=== PATIENT | male | born 1985 | race Two or more races ===

== ENCOUNTER 2019-01-18 21:48 | Emergency (ER) | payer SELFPAY ==
[~2019-01-18] VITALS: Ht 167.6 cm; Wt 81.6 kg
--- NOTE | 2019-01-18 22:15 | NUR ---
ED Nurse Note: Recvieved pt from home with c/o chest pain intermittently x 3-4 weeks, denies injury, sob, any history, or other complaints, pt gowned and assisted to monitoring, will resume care as ordered and continue to closely monitor.
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
[2019-01-18 22:49] LABS: ANION GAP 9 mmol/L (5-15); BLOOD UREA NITROGEN 18 mg/dL (7-18); CALCIUM 9.6 MG/DL (8.5-10.1); CARBON DIOXIDE 27 MMOL/L (21-32); CHLORIDE 103 MMOL/L (98-107); SODIUM 139 MMOL/L (136-145)
[2019-01-18 22:54] LABS: BASOPHILS % (AUTO) 0.9 % (0.0-2.0); EOSINOPHILS % (AUTO) 2.1 % (0.0-3.0); HEMATOCRIT 48.7 % (42.0-52.0); HEMOGLOBIN 16.9 G/DL (14.2-18.0); LYMPHOCYTES % (AUTO) 39.9 % (20.0-45.0); MEAN CORPUSCULAR VOLUME 88 FL (80-99); MONOCYTES % (AUTO) 6.9 % (1.0-10.0); NEUTROPHILS % (AUTO) 50.3 % (45.0-75.0); PLATELET COUNT 316 K/UL (150-450); RED BLOOD COUNT 5.54 M/UL (4.70-6.10); WHITE BLOOD COUNT 8.4 K/UL (4.8-10.8)
[2019-01-18 23:02] LABS: ALANINE AMINOTRANSFERASE 35 U/L (12-78); ALBUMIN 4.4 G/DL (3.4-5.0); ALBUMIN/GLOBULIN RATIO 1.2 (1.0-2.7); ALKALINE PHOSPHATASE 88 U/L (46-116); ASPARTATE AMINO TRANSFERASE 18 U/L (15-37); BILIRUBIN,TOTAL 0.9 MG/DL (0.2-1.0); CKMB 0.7 NG/ML (0.0-3.6); CREATINE KINASE 129 U/L (26-308)
[2019-01-18] MEDS ORDERED: ROBAXIN-750750 MG PO (23:57)
[2019-01-18] MEDS ORDERED: MECLIZINE HCL25 MG ORAL (23:57)
--- NOTE | 2019-01-18 23:58 | Emergency Room Report ---
History of Present Illness General Chief Complaint: Chest Pain Source: Patient Present Illness HPI Disclaimer: Please note that this report is being documented using DRAGON technology. This can lead to erroneous entry secondary to incorrect interpretation by the dictating instrument. HPI: This is a 33-year-old Samoan-speaking male presenting for evaluation of chest and back pain. History and exam were performed with the help of an fisher crab. Patient is otherwise healthy with no medical history and states he has been experiencing approximately 2-week of left-sided upper back pain over the scapula and occasionally over the left anterior chest wall. This pain is always exacerbated by moving into the left upper extremity particularly at the shoulder. He also notes intermittent episode of lightheadedness and somewhat vertiginous symptoms with head movements over the past 2 weeks that got worse today. Currently, he is asymptomatic and states his lightheadedness resolved just prior to arrival. He still complains of back pain but no chest pain. Cannot recall specific injury. 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 He denies numbness, tingling, weakness as well as ataxia, headache or vision changes. He is otherwise in his usual state of health and denies any recent fever, chills, cough, abdominal pain, vomiting, diarrhea PMH: Denies PSH: Denies Allergies: Denies Social Hx: Occasional alcohol use, occasional tobacco use. Denies IV drugs Allergies: Coded Allergies: No Known Allergies (Unverified , 01/18/19) Nursing Documentation-PMH Past Medical History: No Stated History Review of Systems All Other Systems: negative except mentioned in HPI Physical Exam Vital Signs Date Time Temp Pulse Resp B/P (MAP) Pulse Ox O2 Delivery O2 Flow Rate FiO2 01/18/19 21:54 98.4 83 14 160/102 (121) 97 Room Air General: Awake and alert, no acute distress HEENT: NC/AT. EOMI. PERRLA. No nystagmus. Neck: Supple, trachea midline Chest Wall: No tenderness, no deformity Cardiovascular: RRR. S1 and S2 normal. No murmur appreciated Resp: Normal work of breathing. No cough, wheezing or crackles appreciated Abdomen: Abdomen is soft, nondistended. Nontender Skin: Intact. No abrasions, laceration or rash over the exposed skin MSK: Normal tone and bulk. Moving all extremities. No obvious deformity. Neuro: Awake and alert. Mentating appropriately. There is no nystagmus, facial expressions are symmetrical. The patient has no dysmetria on finger-nose -finger, heel shell testing. Sensation is intact over the upper and lower extremities of the dermatomes bilaterally. Back/Spine: No midline tenderness in the cervical, thoracic or lumbosacral spine. There is left-sided paraspinal tenderness and tenderness in the mid scapular line in the upper thoracic spine and tenderness over the trapezius. No obvious trigger point Medical Decision Making Diagnostic Impression: Primary Impression: Back spasm Additional Impressions: Lightheaded Vertigo, peripheral ER Course 33-year-old male presents for evaluation of 2 weeks worsening left-sided back pain, intermittent chest wall pain and lightheadedness/vertigo. Differential includes but is not limited to ACS, unstable angina, bronchitis, GERD, peripheral vertigo, electrolyte abnormality. We will start broad work-up including EKG, labs, chest x-ray and treat the patient for back spasm for which I have a strong suspicion. He has no chest wall pain currently in his chest pain appears to be largely related to his back pain when it is present however we will start a broad work-up. Laboratory Tests Test 01/18/19 22:10 White Blood Count 8.4 K/UL (4.8-10.8) Red Blood Count 5.54 M/UL (4.70-6.10) Hemoglobin 16.9 G/DL (14.2-18.0) Hematocrit 48.7 % (42.0-52.0) Mean Corpuscular Volume 88 FL (80-99) Mean Corpuscular Hemoglobin 30.4 PG (27.0-31.0) Mean Corpuscular Hemoglobin Concent 34.6 G/DL (32.0-36.0) Red Cell Distribution Width 11.0 % (11.6-14.8) L Platelet Count 316 K/UL (150-450) Mean Platelet Volume 6.8 FL (6.5-10.1) Neutrophils (%) (Auto) 50.3 % (45.0-75.0) Lymphocytes (%) (Auto) 39.9 % (20.0-45.0) Monocytes (%) (Auto) 6.9 % (1.0-10.0) Eosinophils (%) (Auto) 2.1 % (0.0-3.0) Basophils (%) (Auto) 0.9 % (0.0-2.0) Sodium Level 139 MMOL/L (136-145) Potassium Level 3.0 MMOL/L (3.5-5.1) L Chloride Level 103 MMOL/L (98-107) Carbon Dioxide Level 27 MMOL/L (21-32) Anion Gap 9 mmol/L (5-15) Blood Urea Nitrogen 18 mg/dL (7-18) Creatinine 1.0 MG/DL (0.55-1.30) Estimate Glomerular Filtration Rate > 60 mL/min (>60) Glucose Level 162 MG/DL (74-106) H Calcium Level 9.6 MG/DL (8.5-10.1) Total Bilirubin 0.9 MG/DL (0.2-1.0) Aspartate Amino Transferase (AST) 18 U/L (15-37) Alanine Aminotransferase (ALT) 35 U/L (12-78) Alkaline Phosphatase 88 U/L (46-116) Total Creatine Kinase 129 U/L (26-308) Creatine Kinase MB 0.7 NG/ML (0.0-3.6) Creatine Kinase MB Relative Index 0.5 Troponin I 0.000 ng/mL (0.000-0.056) Pro-B-Type Natriuretic Peptide 13 pg/mL (0-125) Total Protein 8.0 G/DL (6.4-8.2) Albumin 4.4 G/DL (3.4-5.0) Globulin 3.6 g/dL Albumin/Globulin Ratio 1.2 (1.0-2.7) EKG Diagnostic Results EKG Time: 22:06 Rate: normal Rhythm: NSR ST Segments: no acute changes Other Impression Sinus rhythm, slight left axis deviation. No acute ST changes. Occasional PVC. Rhythm Strip Diag. Results Rhythm Strip Time: 22:06 EP Interpretation: yes Rate: 70s Rhythm: NSR, other - Occasional PVC Other Impression Sinus rhythm with occasional PVC Chest X-Ray Diagnostic Results Chest X-Ray Diagnostic Results : # of Views/Limited/Complete: 1 View Indication: Chest Pain EP Interpretation: Yes PA Xray: Interpretation reviewed Interpretation: no consolidation, no effusion, no pneumothorax Impression: No acute disease Electronically Signed by: Electronically signed by Dr. Maximino Weems Reevaluation Time: 23:58 Last Vital Signs Date Time Temp Pulse Resp B/P (MAP) Pulse Ox O2 Delivery O2 Flow Rate FiO2 01/18/19 21:54 98.4 83 14 160/102 (121) 97 Room Air Status: improved Reevaluation Impression Labs are returned largely unremarkable. Troponins are negative. Believe the patient is experience and back spasms and he was discharged home on Robaxin. Also, appears he is experiencing some peripheral vertigo. Neuro exam is intact and the patient will be tried on meclizine. I gave him very strict return precautions and discussed with his family signs to look for to return the patient to return to the emergency department. They understand agree with this treatment plan will be discharged home to follow-up as outpatient. Disposition: HOME, SELF-CARE Condition: Stable Scripts Meclizine Hcl* (MECLIZINE*) 25 Mg Tablet 25 MG ORAL THREE TIMES A DAY PRN for for dizziness for 10 Days, #30 TAB Prov: Maximino Weesm MD 01/18/19 Methocarbamol* (ROBAXIN-750*) 750 Mg Tablet 750 MG PO QID, #28 TAB 0 Refills Prov: Maixmino Weems MD 01/18/19 Referrals: Kellee Dominguez [facility] Patient Instructions: Heat Therapy, Benign Positional Vertigo Additional Instructions: Please use the new medication as prescribed to treat your back spasms and your lightheadedness/vertigo symptoms. Please follow-up with 1 of the doctors listed here in your discharge paperwork to establish herself as a new patient. If your symptoms continue or suddenly worsen over the next week please return to the emergency department immediately for reevaluation. Maximino Weems MD Jan 18, 2019 23:58
[2019-01-19] VITALS: BP 141/83
[2019-01-19 00:15] VITALS: BP 160/102
--- NOTE | 2019-01-19 00:20 | NUR ---
ER DISCHARGE NOTE: Patient is cleared to be discharged per ERMD, pt is aox4, on room air, with stable vital signs. pt was given dc and prescription instructions, pt was able to verbalize understanding, pt id band and iv site removed without complications. pt is able to ambulate with steady gait. pt took all belongings.
--- NOTE | 2019-01-22 11:37 | Cardiology Report ---
APPROVED REPORT EKG Measurement Heart [id number] Sinus rhythm with sinus arrhythmia with occasional premature ventricular complexes Otherwise normal ECG
== END 2019-01-19 00:22 | disposition home or self-care (01) ==
LOC: EMR 22:08
DX: M62.830 Muscle spasm of back (principal); H81.399 Other peripheral vertigo, unspecified ear; R07.9 Chest pain, unspecified
CPT/HCPCS: 36415; 71045; 80053; 82550; 82553; 83880; 84484; 85025; 93005; 99284